=== PATIENT | female | born 1985 | race Caucasian/White ===

== ENCOUNTER 2023-05-23 15:56 | Emergency (ER) | payer OTHER ==
[2023-05-23 16:32] VITALS: BP 143/86; TEMP 98.5; BMI 24.2
[2023-05-23] MEDS ORDERED: KETOROLAC TROMETHAMINE 30 MG/1 ML VIAL IM ONE (18:09)
[2023-05-23] MEDS ORDERED: diazePAM 5 MG TABLET PO ONE (18:09)
[2023-05-23] MEDS ORDERED: diazePAM 5 MG TABLET ONE (18:12)
[2023-05-23] MEDS ORDERED: KETOROLAC TROMETHAMINE 30 MG/1 ML VIAL ONE (18:12)
[2023-05-23] MEDS ORDERED: ACETAMINOPHEN 500 MG TABLET (FP) PO ONE (20:34)
[2023-05-23] MEDS ORDERED: ACETAMINOPHEN 500 MG TABLET (FP) ONE (20:37)
[2023-05-23 20:40] VITALS: PULSE 80; RESP 16
== END 2023-05-23 20:41 | disposition home or self-care (01) ==
LOC: JERFT 15:56
PROC: 3E0233Z Introduction of Anti-inflammatory into Muscle, Percutaneous Approach (ICD-10-PCS; principal; 2023-05-23)
DX: M25.512 Pain in left shoulder (principal); R42 Dizziness and giddiness; V03.19XA Pedestrian with other conveyance injured in collision with car, pick-up truck or van in traffic accident, initial encounter; Y92.410 Unspecified street and highway as the place of occurrence of the external cause
CPT/HCPCS: 71101-TC-LT-FY; 73030-TC-LT-FY; 99284-25

== ENCOUNTER 2023-09-16 14:13 | Emergency (ER) | payer OTHER ==
[2023-09-16 14:17] VITALS: BP 116/73; PULSE 80; RESP 18; TEMP 97.5; BMI 25.8
[2023-09-16] MEDS ORDERED: DIPHTH,PERTUSS(ACELL),TET 0.5 ML DISP.SYRIN IM ONE (14:59)
[2023-09-16] MEDS: DIPHTH,PERTUSS(ACELL),TET 0.5 ML DISP.SYRIN IM ONE (15:02)
== END 2023-09-16 15:25 | disposition home or self-care (01) ==
LOC: JERFT 14:13
PROC: 0XQKXZZ Repair Left Hand, External Approach (ICD-10-PCS; principal; 2023-09-16)
PROC: 3E0234Z Introduction of Serum, Toxoid and Vaccine into Muscle, Percutaneous Approach (ICD-10-PCS; 2023-09-16)
DX: S61.412A Laceration without foreign body of left hand, initial encounter (principal); W26.0XXA Contact with knife, initial encounter
CPT/HCPCS: 12001-25; 90471; 90715; 99284-25